=== PATIENT | female | born 1960 | race African-American/Black ===

== ENCOUNTER 2019-03-18 13:41 | Emergency (ER) | payer MEDICAID ==
[~2019-03-18] VITALS: Ht 167.6 cm; Wt 70.0 kg
[2019-03-18] MEDS ORDERED: IBUPROFEN 400MG TABLET PO ONE (14:45)
[2019-03-18 14:56] VITALS: BP 138/75
== END 2019-03-18 16:43 | disposition home or self-care (01) ==
LOC: ER 13:41
DX: M25.571 Pain in right ankle and joints of right foot (principal)
CPT/HCPCS: 73610; 99283; Z7610